=== PATIENT | male | born 1955 | race Caucasian/White ===

== ENCOUNTER 2019-05-27 21:02 | Emergency (ER) | payer MEDICARE ==
[2019-05-27] MEDS ORDERED: KETOROLAC 30 MG/ML INJ ONE (22:42)
--- NOTE | 2019-05-27 23:34 | ER ---
Nurse's Notes [facility] Name: Maryan Little Age: 64 yrs Sex: Male : 1955 Arrival Date: 05/27/2019 Time: 21:12 Bed 5 Private MD: Diagnosis: Pain in left hip Presentation: 05/27 21:18 Presenting complaint: Patient states: left hip pain [id number] after falling 2 months ak1 [employer]. pt ambulates with cane. Transition of care: patient was not received from another setting of care. Onset of symptoms is unknown. Risk Assessment: Do you want to hurt yourself or someone else? Patient reports no desire to harm self or others. Initial Sepsis Screen: Does the patient meet any 2 criteria? No. Patient's initial sepsis screen is negative. Does the patient have a suspected source of infection? No. Patient's initial sepsis screen is negative. Care prior to arrival: None. 21:18 Method Of Arrival: Ambulatory ak1 21:18 Acuity: BAL 3 ak1 Historical: - Allergies: 22:01 No Known Allergies; rr5 - Home Meds: 22:10 Vitamin D Oral [Active]; amitriptyline 25 mg Oral tab [Active]; topiramate oral oral rr5 [Active]; duloxetine 60 mg oral cpDR [Active]; Metoprolol Tartrate Oral [Active]; meloxicam oral oral [Active]; melatonin 5 mg Oral tab [Active]; Methocarbamol Oral [Active]; Centrum Silver oral oral [Active]; - PMHx: 22:01 Fibromyalgia; rr5 - PSHx: 22:01 None; rr5 - Immunization history:: Adult Immunizations unknown. - Social history:: Smoking status: Patient/guardian denies using tobacco. - Ebola Screening: : No symptoms or risks identified at this time. Screenin:14 Abuse screen: Denies threats or abuse. Denies injuries from another. Nutritional mg2 screening: No deficits noted. Tuberculosis screening: No symptoms or risk factors identified. Fall Risk Gait- Weak (10 pts.). Assessment: 21:25 General: Appears in no apparent distress. uncomfortable, Behavior is calm, cooperative, rr5 appropriate for age. 21:25 Pain: Complains of pain in left hip Pain radiates to left leg Pain currently is 8 out rr5 of 10 on a pain scale. Quality of pain is described as aching, Pain began gradually, Is intermittent. Neuro: Level of Consciousness is awake, alert, obeys commands, Oriented to person, place, time, situation, Appropriate for age. Cardiovascular: Capillary refill < 3 seconds Patient's skin is warm and dry. Respiratory: Airway is patent Respiratory effort is even, unlabored, Respiratory pattern is regular, symmetrical. GI: No signs and/or symptoms were reported involving the gastrointestinal system. : No signs and/or symptoms were reported regarding the genitourinary system. EENT: No signs and/or symptoms were reported regarding the EENT system. Derm: Skin is intact, Skin temperature is warm. Musculoskeletal: Circulation, motion, and sensation intact. Capillary refill < 3 seconds, Reports pain in left hip since 2 months. Pain is 8 out of 10 on a pain scale. 23:52 Reassessment: Patient appears in no apparent distress at this time. Patient states mg2 feeling better. Patient states symptoms have improved. Vital Signs: 21:19 BP 118 / 78; Pulse 93; Resp 16; Temp 97.6; Pulse Ox 96% ; Weight 81.65 kg (R); Height 5 ak1 ft. 3 in. (160.02 cm) (R); Pain 8/10; 23:24 BP 122 / 74; Pulse 90; Resp 18; Pulse Ox 100% on R/A; mg2 23:52 BP 119 / 78; Pulse 89; Resp 18; Temp 98; Pulse Ox 100% on R/A; Pain 1/10; mg2 21:19 Body Mass Index 31.89 (81.65 kg, 160.02 cm) ak1 ED Course: 21:12 Patient arrived in ED. ds1 21:19 Triage completed. ak1 21:19 Arm band placed on Patient placed in an exam room, on a stretcher, Patient notified of ak1 wait time. 21:24 Alvarez Dempsey RN is Primary Nurse. rr5 21:30 Jesu Garza PA is PHCP. cp 21:30 Jesu Shirley MD is Attending Physician. cp 22:14 Patient has correct armband on for positive identification. Pulse ox on. NIBP on. Door mg2 closed. Warm blanket given. 22:14 No provider procedures requiring assistance completed. Patient did not have IV access mg2 during this emergency room visit. 22:40 XRAY Hip LEFT 2 view In Process Unspecified. EDMS Administered Medications: 22:51 Drug: TORadol 60 mg Route: IM; Site: left gluteus; rr5 23:46 Follow up: Response: No adverse reaction; Marked relief of symptoms mg2 Outcome: 23:34 Discharge ordered by . cp 23:52 Discharged to home via wheelchair, with family. mg2 23:52 Condition: stable 23:52 Discharge instructions given to patient, family, Instructed on discharge instructions, follow up and referral plans. medication usage, Demonstrated understanding of instructions, follow-up care, medications, Prescriptions given X 3. 23:53 Patient left the ED. mg2 Signatures: Dispatcher [employer] EDMS Rina Hargrove ds1 Kristy Vieira RN RN ak1 Jesu Garza PA PA cp [place], Michele, LENI RN mg2 Alvarez Dempsey RN RN rr5
--- NOTE | 2019-05-27 23:34 | EDPHYS ---
Physician Documentation [facility] Name: Maryan Little Age: 64 yrs Sex: Male : 1955 Arrival Date: 05/27/2019 Time: 21:12 Bed 5 Private MD: ED Physician Jesu Shirley HPI: 05/27 22:00 This 64 yrs old Male presents to ER via Ambulatory with complaints of L Hip cp Pain. 22:00 The patient or guardian reports pain. cp 22:00 sustained from a fall, There is no obvious deformity, The patient is able to self cp ambulate. The patient is able to bear their full body weight. The complaints affect the left hip. Onset: The symptoms/episode began/occurred 2 month(s) ago. Associated signs and symptoms: Pertinent negatives: abdominal pain, chest pain, dysuria, fever, incontinence, weakness. Severity of symptoms: in the emergency department the symptoms are unchanged, despite home interventions. Patient reports she saw family doctor after fall who treated her low back pain with steroids and pain medications, but hip pain has continued without improvement and back pain has resolved. Historical: - Allergies: 22:01 No Known Allergies; rr5 - Home Meds: 22:10 Vitamin D Oral [Active]; amitriptyline 25 mg Oral tab [Active]; topiramate oral oral rr5 [Active]; duloxetine 60 mg oral cpDR [Active]; Metoprolol Tartrate Oral [Active]; meloxicam oral oral [Active]; melatonin 5 mg Oral tab [Active]; Methocarbamol Oral [Active]; Centrum Silver oral oral [Active]; - PMHx: 22:01 Fibromyalgia; rr5 - PSHx: 22:01 None; rr5 - Immunization history:: Adult Immunizations unknown. - Social history:: Smoking status: Patient/guardian denies using tobacco. - Ebola Screening: : No symptoms or risks identified at this time. ROS: 22:05 Constitutional: Negative for body aches, chills, fever, poor PO intake. cp 22:05 Respiratory: Negative for cough, shortness of breath, wheezing. 22:05 Abdomen/GI: Negative for abdominal pain, nausea, vomiting, and diarrhea. 22:05 Back: Negative for pain at rest, pain with movement, radiated pain. 22:05 MS/extremity: Positive for pain, of the left hip. 22:05 Eyes: Negative for injury, pain, redness, and discharge. cp 22:05 ENT: Negative for drainage from ear(s), ear pain, sore throat, difficulty swallowing, difficulty handling secretions. 22:05 Neck: Negative for pain with movement, pain at rest, stiffness, tenderness, bony tenderness. 22:05 : Negative for urinary symptoms. 22:05 Neuro: Negative for altered mental status, headache, weakness. 22:05 All other systems are negative. Exam: 22:15 Constitutional: The patient appears in no acute distress, alert, awake, non-toxic, well cp developed, well nourished. 22:15 Head/Face: Normocephalic, atraumatic. cp 22:15 Eyes: Periorbital structures: appear normal, Conjunctiva: normal, no exudate, no injection, Sclera: no appreciated abnormality, Lids and lashes: appear normal, bilaterally. 22:15 ENT: External ear(s): are unremarkable, Nose: is normal, Mouth: is normal, Posterior pharynx: Airway: no evidence of obstruction, patent. 22:15 Chest/axilla: Inspection: normal. 22:15 Cardiovascular: Rate: normal, Rhythm: regular. 22:15 Respiratory: the patient does not display signs of respiratory distress, Respirations: normal, no use of accessory muscles, no retractions, no splinting, no tachypnea, labored breathing, is not present, Breath sounds: are clear throughout, no decreased breath sounds, no stridor, no wheezing. 22:15 Abdomen/GI: Inspection: abdomen appears normal, Bowel sounds: active, all quadrants, Palpation: abdomen is soft and non-tender, in all quadrants. 22:15 Back: pain, is absent, ROM is normal. 22:15 Musculoskeletal/extremity: Joints: All joints are normal except the left hip displays pain at rest, painful range of motion, tenderness. 22:15 Skin: no rash present. 22:15 Neuro: Orientation: is normal, Mentation: is normal, Motor: moves all fours, strength is normal, Sensation: is normal. Vital Signs: 21:19 BP 118 / 78; Pulse 93; Resp 16; Temp 97.6; Pulse Ox 96% ; Weight 81.65 kg (R); Height 5 ak1 ft. 3 in. (160.02 cm) (R); Pain 8/10; 23:24 BP 122 / 74; Pulse 90; Resp 18; Pulse Ox 100% on R/A; mg2 23:52 BP 119 / 78; Pulse 89; Resp 18; Temp 98; Pulse Ox 100% on R/A; Pain 1/10; mg2 21:19 Body Mass Index 31.89 (81.65 kg, 160.02 cm) ak1 MDM: 21:38 Patient medically screened. cp 23:30 Differential diagnosis: hip fracture, intertrochanteric fracture, femoral neck cp fracture, femoral shaft fracture, bursitis, strain. 23:33 Data reviewed: vital signs, nurses notes, radiologic studies, plain films. cp 23:33 Test interpretation: by ED physician or midlevel provider: plain radiologic studies, cp xrays of left hip negative for fracture. Counseling: I had a detailed discussion with the patient and/or guardian regarding: the historical points, exam findings, and any diagnostic results supporting the discharge/admit diagnosis, radiology results, the need for outpatient follow up, a orthopedic surgeon, to return to the emergency department if symptoms worsen or persist or if there are any questions or concerns that arise at home. Response to treatment: the patient's symptoms have markedly improved after treatment, and as a result, I will discharge patient. 05/27 21:51 Order name: XRAY Hip LEFT 2 view cp Administered Medications: 22:51 Drug: TORadol 60 mg Route: IM; Site: left gluteus; rr5 23:46 Follow up: Response: No adverse reaction; Marked relief of symptoms mg2 Disposition: 05/27/19 23:34 Discharged to Home. Impression: Pain in left hip. - Condition is Stable. - Discharge Instructions: Hip Pain. - Prescriptions for Mobic 7.5 mg Oral Tablet - take 1 tablet by ORAL route once daily take with food; 20 tablet. Cyclobenzaprine 10 mg Oral Tablet - take 1 tablet by ORAL route every 8 hours As needed; 20 tablet. Tramadol 50 mg Oral Tablet - take 1 tablet by ORAL route every 8 hours as needed; 20 tablet. - Medication Reconciliation Form, Thank You Letter, Antibiotic Education, Prescription Opioid Use form. - Follow up: Private Physician; When: once returned home; Reason: Recheck today's complaints. - Problem is an ongoing problem. - Symptoms have improved. Addendum: 05/29/2019 07:55 Co-signature as Attending Physician, Jesu Shirley MD I agree with the assessment and c pringle plan of care. Signatures: Dispatcher [employer] EDJesu Shepherd MD MD cha Krenek, Amber, RN RN ak1 Jesu Garza PA PA cp Kyaw Baron, RN RN mg2 Alvarez Dempsey RN RN rr5 Corrections: (The following items were deleted from the chart) 05/27 23:53 23:34 05/27/2019 23:34 Discharged to Home. Impression: Pain in left hip. Condition is mg2 Stable. Forms are Medication Reconciliation Form, Thank You Letter, Antibiotic Education, Prescription Opioid Use. Follow up: Private Physician; When: once returned home; Reason: Recheck today's complaints. Problem is an ongoing problem. Symptoms have improved. cp 05/28 22:47 05/27 23:50 Differential diagnosis: intertrochanteric fracture, femoral neck fracture, cp femoral shaft fracture, bursitis, strain, cp
[2019-05-28 01:16] VITALS: O2SAT 100
[2019-05-28 01:17] VITALS: BP 119/78; TEMP 98
--- NOTE | 2019-05-28 11:35 | RAD REPORT ---
EXAM DESCRIPTION: RAD - Hip Left 2 View - 05/27/2019 10:39 pm CLINICAL HISTORY: PAIN COMPARISON: No comparisons FINDINGS: No bone or joint abnormality is detected.
== END 2019-05-27 23:53 | disposition home or self-care (01) ==
LOC: ER 21:02
DX: M25.552 Pain in left hip (principal); M79.7 Fibromyalgia
CPT/HCPCS: 96372; 99284